=== PATIENT | female | born 1955 | race African-American/Black ===

== ENCOUNTER 2019-02-18 09:43 | Emergency (ER) | payer MEDICARE, MEDICAID ==
[~2019-02-18] VITALS: Ht 160 cm; Wt 47.1 kg
--- NOTE | 2019-02-18 10:30 | NUR ---
[employer]: Patient ambulates with steady gait to room from lobby in no apparent distress.
[2019-02-18] MEDS ORDERED: MAALOX/HYOSCYAMINE/LIDOCAINE 45 ML BTL PO ONE (11:30)
--- NOTE | 2019-02-18 11:30 | NUR ---
PT STATES THAT SHE HAS BEEN USING HEROINE TO TREAT HER ABDOMINAL PAIN, PT REPORTS THAT SHE LOST CONSCIOUSNESS 5 DAYS AGO AFTER USING AND THINKS SHE WAS UNCONSCIOUS FOR 45 MINUTES. PT STATES THAT HER FRIEND WAS WITH HER WHEN SHE LOST CONSCIOUSNESS BUT LEFT PRIOR TO HER REGAINING CONSCIOUSNESS.
[2019-02-18 11:54] LABS: BASOPHILS # (AUTO) 0.02 x10^3/uL (0-0.1); BASOPHILS % (AUTO) 1 % (0-1); EOSINOPHILS # (AUTO) 0.15 x10^3/uL (0-0.4); EOSINOPHILS % (AUTO) 3 % (1-7); LYMPHOCYTES # (AUTO) 2.01 x10^3/uL (1-3.4); LYMPHOCYTES % (AUTO) 40 % (22-44); MD NO; MEAN CORPUSCULAR HEMOGLOBIN 31.1 pg (27.0-34.8); MEAN CORPUSCULAR HGB CONC 33.4 g/dL (32.4-35.8); MEAN CORPUSCULAR VOLUME 93.3 fL (80-100); MEAN PLATELET VOLUME 7.7 fL (7.4-10.4); MONOCYTES # (AUTO) 0.44 x10^3/uL (0.2-0.8); MONOCYTES % (AUTO) 9 % (2-9); NEUTROPHILS # (AUTO) 2.47 x10^3/uL (1.8-6.8); NEUTROPHILS % (AUTO) 48 % (42-75); PLATELET COUNT 186 x10^3/uL (130-400); RED BLOOD COUNT 4.56 x10^6/uL (3.82-5.3); RED CELL DISTRIBUTION WIDTH 13.5 % (9.6-15.2)
--- NOTE | 2019-02-18 11:55 | NUR ---
BEDSIDE REPORT TO [facility], PT CARE TRANSFERRED AT THIS TIME
--- NOTE | 2019-02-18 11:56 | NUR ---
BEDSIDE REPORT FROM KAILEY BETHEA WITH ASSESSMENT PATIENT WITH NO NEUROLOGICAL DEFICITS. HOWEVER, COMPLAINIG OF EPIGASTRIC CRAMPING AT 6-TO MEDICATE SHORTLY
[2019-02-18 12:03] LABS: CHLORIDE 96 mmol/L (98-107)
[2019-02-18 12:04] LABS: ALBUMIN 3.6 g/dL (3.4-5.0); CALCIUM 8.9 mg/dL (8.5-10.1)
[2019-02-18 12:13] LABS: ALANINE AMINOTRANSFERASE 29 U/L (12-78); ALKALINE PHOSPHATASE 112 U/L (45-117); ANION GAP 4 mmol/L (5-15); BILIRUBIN,TOTAL 0.6 mg/dL (0.2-1.0); CREATININE 0.98 mg/dL (0.55-1.02); TOTAL PROTEIN 7.4 g/dL (6.4-8.2); TROPONIN I < 0.015 ng/mL (0.000-0.045)
--- NOTE | 2019-02-18 13:29 | NUR ---
PROVIDER TO BEDSIDE TO PERFORM PELVIC EXAM
[2019-02-18] MEDS ORDERED: MAALOX/HYOSCYAMINE/LIDOCAINE 45 ML BTL ONE (13:34)
[2019-02-18 13:47] VITALS: BP 120/91
[2019-02-18] MEDS ORDERED: CEFTRIAXONE 250 MG IM ONE (14:00)
[2019-02-18] MEDS ORDERED: AZITHROMYCIN 500 MG TABLET PO ONE (14:00)
[2019-02-18] MEDS ORDERED: metroNIDAZOLE 500 MG TABLET PO ONE (14:00)
[2019-02-18 14:05] LABS: CLUE CELLS NONE SEEN (NONE SEEN)
[2019-02-18 14:06] LABS: WET PREP WBCS MANY (FEW)
--- NOTE | 2019-02-18 14:15 | NUR ---
WAITING ON PROVIDERS D/C PAPERWORK. PROVIDER REMINDED. HOWEVER, PROVIDER WITH HIGH ACUITY PATIENT
--- NOTE | 2019-02-18 14:46 | NUR ---
PROVIDER ASKED IF RX NEEDED FOR VAGINAL DISCHARGE-PAOVIDER WITH HIGH ACUITY PATIENT.
--- NOTE | 2019-02-18 15:01 | NUR ---
Patient finally discharged after clarification that further medications not neccessary
== END 2019-02-18 15:03 | disposition home or self-care (01) ==
LOC: ED 12:37
DX: S09.90XA Unspecified injury of head, initial encounter (principal); R10.13 Epigastric pain; N89.8 Other specified noninflammatory disorders of vagina; W07.XXXA Fall from chair, initial encounter; Y93.89 Activity, other specified; Y92.009 Unspecified place in unspecified non-institutional (private) residence as the place of occurrence of the external cause; Y99.8 Other external cause status
CPT/HCPCS: 36415; 70450; 80053; 84484; 85025; 87210; 87491; 87591; 87808; 93005; 99284